=== PATIENT | female | born 1940 | race Caucasian/White ===

== ENCOUNTER → 2020-07-05 | Outpatient (CLI) | payer MEDICARE, OTHER | LOC: KOH-I 10:30 | DX: G45.9 Transient cerebral ischemic attack, unspecified (principal); H54.62 Unqualified visual loss, left eye, normal vision right eye; R29.90 Unspecified symptoms and signs involving the nervous system; I65.23 Occlusion and stenosis of bilateral carotid arteries | CPT/HCPCS: 93880 ==

== ENCOUNTER → 2020-07-17 | Outpatient (CLI) | payer MEDICARE, OTHER | LOC: KOH-I 15:22 | DX: G45.9 Transient cerebral ischemic attack, unspecified (principal); R29.90 Unspecified symptoms and signs involving the nervous system; H54.62 Unqualified visual loss, left eye, normal vision right eye; G31.9 Degenerative disease of nervous system, unspecified; R90.89 Other abnormal findings on diagnostic imaging of central nervous system | CPT/HCPCS: 70551 ==

== ENCOUNTER 2021-01-19 14:34 | Inpatient (IN) | payer MEDICARE, OTHER ==
[~2021-01-19] VITALS: Ht 170.2 cm; Wt 79.8 kg
[2021-01-19 15:44] LABS: HEMOGLOBIN 12.9 gm/dl (12.3-15.3); RED BLOOD COUNT 4.12 M/UL (4.00-5.10); WHITE BLOOD COUNT 10.9 K/UL (4.5-11.0)
[2021-01-19 16:10] LABS: BUN/CREATININE RATIO 40 (0-10)
[2021-01-19] MEDS ORDERED: COSOPT OPTH SOL10 ML EYEBOTH (21:54)
[2021-01-19] MEDS ORDERED: ATORVASTATIN CA20 MG PO (21:55)
[2021-01-19] MEDS ORDERED: CANDESARTAN CILE8 MG PO (21:55)
[2021-01-19] MEDS ORDERED: VITAMIN D21250 MCG PO (21:56)
[2021-01-19] MEDS ORDERED: ELIQUIS5 MG PO (21:57)
[2021-01-19] MEDS ORDERED: GLUCOTROL XL 22.5 MG PO (21:57)
[2021-01-19] MEDS ORDERED: ATORVASTATIN CA10 MG PO (21:57)
[2021-01-19] MEDS ORDERED: NABUMETONE500 MG PO (21:58)
[2021-01-19] MEDS ORDERED: GABAPENTIN300 MG PO (21:58)
[2021-01-19] MEDS ORDERED: METFORMIN HCL1000 MG PO (21:58)
[2021-01-19] MEDS ORDERED: HYDROXYZINE HCL25 MG PO (22:04)
[2021-01-20 03:22] LABS: HEMOGLOBIN 13.6 gm/dl (12.3-15.3); RED BLOOD COUNT 4.31 M/UL (4.00-5.10); WHITE BLOOD COUNT 9.4 K/UL (4.5-11.0)
[2021-01-20 03:50] LABS: BUN/CREATININE RATIO 37 (0-10)
[2021-01-21 07:08] LABS: HEMOGLOBIN 12.5 gm/dl (12.3-15.3); RED BLOOD COUNT 3.93 M/UL (4.00-5.10); WHITE BLOOD COUNT 9.1 K/UL (4.5-11.0)
[2021-01-21 07:31] LABS: BUN/CREATININE RATIO 36 (0-10)
[2021-01-22 11:01] LABS: HEMOGLOBIN 10.8 gm/dl (12.3-15.3); WHITE BLOOD COUNT 8.6 K/UL (4.5-11.0)
[2021-01-22 11:16] LABS: RED BLOOD COUNT 3.47 M/UL (4.00-5.10)
[2021-01-22 11:21] LABS: BUN/CREATININE RATIO 31 (0-10)
[2021-01-23 08:58] LABS: HEMOGLOBIN 10.5 gm/dl (12.3-15.3); RED BLOOD COUNT 3.29 M/UL (4.00-5.10)
[2021-01-23 09:02] LABS: WHITE BLOOD COUNT 6.4 K/UL (4.5-11.0)
[2021-01-23 09:45] LABS: BUN/CREATININE RATIO 19 (0-10)
--- NOTE | 2021-01-24 02:08 | NUR ---
AT APPROXIMATELY 0145 RACHAEL GOINS AND Teodora WERE ASSISTING PT TO THE BEDSIDE COMMODE. I LEFT THE ROOM TO OBTAIN A BRIEF FOR THE PATIENT. ON RETURN PT WAS NOTED TO BE SITTING WITH HER KNEES ON THE FLOOR DIRECTLY NEXT TO HER BED. PER RACHAEL GOINS THE PTS FEET HAD BEGAN TO SLIP WHEN HE GUIDED HER TO THE FLOOR. PT ENDORSED THIS WELL. SHE STATED SHE WAS NOT DIZZY, LIGHTHEADED, ETC. AND HAD JUST SLIPPED. SHE ENDORSED NO PAIN. RACHAEL GOINS, YADI OLIVARES, AND I ASSISTED HER BACK INTO BED WITHOUT ISSUE. I ENSURED FALL PRECAUTIONS WERE STILL IN PLACE AND AGAIN INSTRUCTED PT TO NOT GET UP WITHOUT ASSISTANCE.
[2021-01-24 02:24] LABS: HEMOGLOBIN 11.4 gm/dl (12.3-15.3); RED BLOOD COUNT 3.6 M/UL (4.00-5.10)
[2021-01-24 03:00] LABS: BUN/CREATININE RATIO 10 (0-10)
[2021-01-25 07:55] LABS: HEMOGLOBIN 10.8 gm/dl (12.3-15.3); RED BLOOD COUNT 3.42 M/UL (4.00-5.10); WHITE BLOOD COUNT 5.4 K/UL (4.5-11.0)
[2021-01-25 08:04] LABS: BUN/CREATININE RATIO 7 (0-10)
[2021-01-26 05:55] LABS: HEMOGLOBIN 10.7 gm/dl (12.3-15.3); RED BLOOD COUNT 3.37 M/UL (4.00-5.10); WHITE BLOOD COUNT 5.5 K/UL (4.5-11.0)
[2021-01-26 06:14] LABS: BUN/CREATININE RATIO 10 (0-10)
[2021-01-27 05:58] LABS: HEMOGLOBIN 10.9 gm/dl (12.3-15.3); RED BLOOD COUNT 3.41 M/UL (4.00-5.10); WHITE BLOOD COUNT 4.9 K/UL (4.5-11.0)
[2021-01-27 06:17] LABS: BUN/CREATININE RATIO 9 (0-10)
[2021-01-28 07:27] LABS: HEMOGLOBIN 10.5 gm/dl (12.3-15.3); RED BLOOD COUNT 3.36 M/UL (4.00-5.10); WHITE BLOOD COUNT 4.4 K/UL (4.5-11.0)
[2021-01-28 07:58] LABS: BUN/CREATININE RATIO 10 (0-10)
[2021-01-29 06:59] LABS: HEMOGLOBIN 11.3 gm/dl (12.3-15.3); RED BLOOD COUNT 3.55 M/UL (4.00-5.10); WHITE BLOOD COUNT 4.5 K/UL (4.5-11.0)
[2021-01-29 07:19] LABS: BUN/CREATININE RATIO 8 (0-10)
[2021-01-31 05:19] LABS: HEMOGLOBIN 11.2 gm/dl (12.3-15.3); RED BLOOD COUNT 3.5 M/UL (4.00-5.10)
[2021-01-31 05:53] LABS: BUN/CREATININE RATIO 9 (0-10)
[2021-01-31] MEDS ORDERED: ACETAMINOPHEN325 MG PO (09:55)
== END 2021-01-31 16:27 | DRG 330 ==
LOC: ER1 14:34 → CDU 21:25 → MED SURG 4 21:25
PROVIDERS: Family Medicine; Internal Medicine; Physician Assistant Medical; Surgery; ADMIT Internal Medicine
PROC: 0YQ70ZZ Repair Right Femoral Region, Open Approach (ICD-10-PCS; 2021-01-20)
PROC: 0DH67UZ Insertion of Feeding Device into Stomach, Via Natural or Artificial Opening (ICD-10-PCS; 2021-01-20)
PROC: B24BZZZ Ultrasonography of Heart with Aorta (ICD-10-PCS; 2021-01-20)
PROC: 0DB80ZZ Excision of Small Intestine, Open Approach (ICD-10-PCS; principal; 2021-01-20 11:00)
DX: K40.30 Unilateral inguinal hernia, with obstruction, without gangrene, not specified as recurrent (principal); I48.20 Chronic atrial fibrillation, unspecified; T81.30XA Disruption of wound, unspecified, initial encounter; K41.30 Unilateral femoral hernia, with obstruction, without gangrene, not specified as recurrent; I10 Essential (primary) hypertension; Z20.822 Contact with and (suspected) exposure to COVID-19; Y83.9 Surgical procedure, unspecified as the cause of abnormal reaction of the patient, or of later complication, without mention of misadventure at the time of the procedure; Y92.238 Other place in hospital as the place of occurrence of the external cause; E78.5 Hyperlipidemia, unspecified; E03.9 Hypothyroidism, unspecified; E87.6 Hypokalemia; E83.42 Hypomagnesemia; M19.90 Unspecified osteoarthritis, unspecified site; I87.2 Venous insufficiency (chronic) (peripheral); E11.51 Type 2 diabetes mellitus with diabetic peripheral angiopathy without gangrene; R94.31 Abnormal electrocardiogram [ECG] [EKG]; I08.1 Rheumatic disorders of both mitral and tricuspid valves; R53.81 Other malaise; Z98.51 Tubal ligation status; Z98.890 Other specified postprocedural states; Z79.01 Long term (current) use of anticoagulants; Z80.8 Family history of malignant neoplasm of other organs or systems; Z87.891 Personal history of nicotine dependence; Z86.718 Personal history of other venous thrombosis and embolism
CPT/HCPCS: ECHO; 36415; 71045; 80048; 80053; 81001; 82550; 82553; 82962; 83605; 83690; 83735; 83874; 84132; 84484; 85025; 85027; 87040; 87077; 87086; 87186; 93005; 93306; 96374; 96375; 97110; 97110-GP-CQ; 97116; 97116-GP-CQ; 97162; 97166; 97530; 97530-GP-CQ; 97535; 99285; C1781; C9113; G0378; J0690; J0696; J1100; J1335; J1650; J1956; J2001; J2270; J2370; J2405; J2550; J2704; J2710; J3010; J3475; J3480; J7120; Q9967; U0002

== ENCOUNTER → 2021-02-21 | Outpatient (CLI) | payer MEDICARE, OTHER ==
[~2021-02-21] MED LIST: ACETAMINOPHEN325 MG PO; ATORVASTATIN CA10 MG PO; ATORVASTATIN CA20 MG PO; CANDESARTAN CILE8 MG PO; COSOPT OPTH SOL10 ML EYEBOTH; ELIQUIS5 MG PO; GABAPENTIN300 MG PO; GLUCOTROL XL 22.5 MG PO; HYDROXYZINE HCL25 MG PO; METFORMIN HCL1000 MG PO; NABUMETONE500 MG PO; VITAMIN D21250 MCG PO
== END ==
LOC: KOH-I 16:13
DX: R06.2 Wheezing (principal); R05.9 Cough, unspecified; J84.9 Interstitial pulmonary disease, unspecified; J98.4 Other disorders of lung
CPT/HCPCS: 71046

== ENCOUNTER → 2021-03-21 | Outpatient (CLI) | payer MEDICARE, OTHER | LOC: US 13:52 | DX: R60.0 Localized edema (principal) | CPT/HCPCS: 93970 ==

== ENCOUNTER → 2021-04-18 | Outpatient (CLI) | payer MEDICARE, OTHER | LOC: KOH-I 16:21 | DX: J18.9 Pneumonia, unspecified organism (principal); M41.9 Scoliosis, unspecified; J84.89 Other specified interstitial pulmonary diseases | CPT/HCPCS: 71046 ==

== ENCOUNTER → 2021-07-14 | Outpatient (CLI) | payer MEDICARE, OTHER ==
[~2021-07-14] VITALS: Ht 167.6 cm; Wt 75.7 kg
== END ==
LOC: EROP 12:28
DX: Z23 Encounter for immunization (principal); U07.1 COVID-19
CPT/HCPCS: M0247; Q0247

== ENCOUNTER → 2021-09-23 | Outpatient (CLI) | payer MEDICARE, OTHER | LOC: EXRD 13:30 | DX: M79.605 Pain in left leg (principal); R60.9 Edema, unspecified; M79.89 Other specified soft tissue disorders; I83.92 Asymptomatic varicose veins of left lower extremity | CPT/HCPCS: 93971 ==